=== PATIENT | female | born 1960 | race Caucasian/White ===

== ENCOUNTER 2018-10-02 07:24 | Day surgery (SDC) | payer OTHER ==
[2018-09-29 13:29] VITALS: Ht 154.9 cm; Wt 77.3 kg
[~2018-10-02] VITALS: Ht 154.9 cm; Wt 77.3 kg
[2018-10-02] VITALS (11 sets, daily range): BP systolic 109–140; BP diastolic 64–78; PULSE 76–86; RESP 11–18
[~2018-10-02 07:24] MED LIST: [UNRECOGNIZED DRUG - REMARK]
[2018-10-02] MEDS ORDERED: HYDR25TA6 PO (07:52)
--- NOTE | 2018-10-02 08:04 | NUR ---
RE: X RAY SPOKE WITH DR. MCCLELLAND , CLARIFIED IF NEED TO DO X RAY. ORDERS RECEIVED NOT TO DO.
--- NOTE | 2018-10-02 09:48 | HPN ---
Date/Time of Note Date/Time of Note DATE: 10/02/18 TIME: 09:48 Interval H&P Admission Note Pt. seen H&P reviewed: No system changes PIERCE LISA MD Oct 02, 2018 09:48
--- NOTE | 2018-10-02 09:54 | PREAC ---
Date/Time of Note Date/Time of Note DATE: 10/02/18 TIME: 09:52 Anesthesia Eval and Record Evaluation Time Pre-Procedure Interview DATE: 10/02/18 TIME: 09:52 Age 58 Sex female NPO: 8 hrs Preoperative diagnosis LEFT RING TRIGGER FINGRER Planned procedure TRIGGER FINGER RELEASE Past Medical History Past Medical History: Includes Cardio: HTN Surgery & Anesthesia Issues No known issue Meds Anticoagulation: No Beta Leena within 24 hr: No Reason Beta Leena not given: Pt. not on B-Leena Reported Medications Hydrochlorothiazide* (Hydrochlorothiazide*) 25 Mg Tab, 25 MG PO DAILY, #30 TAB 10/02/18 Discontinued Reported Medications [Take Med For Htn] No Conflict Check 09/29/18 Meds reviewed: Yes Allergies Coded Allergies: No Known Allergy (Unverified , 10/02/18) Allergies Reviewed: Yes Labs/Studies Labs Reviewed: Reviewed by anesthesiologist Result Diagram: 10/02/18 0815 Laboratory Tests 10/02/18 08:15 test: N/A Studies: ECG (SR), CXR (N/A) Pre-procedure Exam Last vitals Vital Signs Date Temp Pulse Resp B/P (MAP) Pulse Ox O2 O2 Flow FiO2 Time Delivery Rate 10/02/18 97.9 76 18 140/75 95 Room Air 07:52 (96) Airway: Adequate mouth opening Mallampati: Mallampati I Teeth: Normal Lung: Normal Heart: Normal ASA Physical Status ASA physical status: 2 Emergency: None Planned Anesthetic General/MAC: LMA, TIVA Planned Pain Management Parenteral pain med Pre-operative Attestations Prior to commencing anesthesia and surgery, the patient was re-evaluated, there was verification of: *The patient's identity *The results of appropriate recent lab work and preoperative vital signs *The above evaluation not changing prior to induction *Anesthetic plan, risk benefits, alternative and complications discussed with patient/family; questions answered; patient/family understands, accepts and wishes to proceed. CHANCE KENDALL MD Oct 02, 2018 09:54
[2018-10-02] MEDS ORDERED: PROPOFOL 20 ML ONE (09:57)
[2018-10-02] MEDS ORDERED: MIDAZOLAM 1 MG/ML 2 ML INJ ONE (09:57)
[2018-10-02] MEDS ORDERED: FENTAnyl 50 MCG/ML VIAL ONE (09:58)
[2018-10-02] MEDS ORDERED: KETOROLAC 30 MG INJ ONE (09:59)
[2018-10-02] MEDS ORDERED: ONDANSETRON 4 MG INJ IV PRN (10:00)
[2018-10-02] MEDS ORDERED: MEPERIDINE 25 MG INJ IV PRN (10:00)
[2018-10-02] MEDS ORDERED: LABETALOL HCL 20MG INJ IV PRN (10:00)
[2018-10-02] MEDS ORDERED: hydrALAzine 20 MG INJ IV PRN (10:00)
[2018-10-02] MEDS ORDERED: OXYCODONE/ACETAMINOPHEN (5/325) TAB PO PRN ×2 (10:00)
[2018-10-02] MEDS ORDERED: DIPHENHYDRAMINE 50 MG INJ IV PRN (10:00)
[2018-10-02] MEDS ORDERED: HYDROmorphONE 1 MG/5 ML IV SYRINGE IV PRN ×3 (10:00)
[2018-10-02] MEDS ORDERED: LIDOCAINE 1%/EPI (1:100,000) (MDV) 20 ML ONE (10:03)
--- NOTE | 2018-10-02 10:24 | SIPON ---
Date/Time of Note Date/Time of Note DATE: 10/02/18 TIME: 10:22 Operative Report Preoperative Diagnosis left ring finger trigger finger, constrictive tenosynotis Postoperative Diagnosis same plus small ganlion cyst of tenosheath Operation/Procedure Performed excise cyst release trigger finger Surgeon cordelia Lieberman assist staff Anesthesia: moderate sedation Estimated blood loss: none Transfusion Required none Specimen cyst Grafts/Implants none Complications none PIERCE LISA MD Oct 02, 2018 10:24
--- NOTE | 2018-10-02 11:02 | NUR ---
PACU NOTES: PATIENT AWAKE AND ALERT. ON ROOM AIR 95% S/P LEFT RELEASE RING TRIGGER FINGER. COMPLAIN OF PAIN MEDICATED WITH DILAUDID 0.4 MG IV AND ZOFRAN 4 MG IV GIVEN. TOLERATED P.O FLUIDS. LEFT HAND ELEVATED IN PILLOW W/ DRY AND INTACT DRESSING ABLE TO MOVE FINERS AND WARM TO TOUCH. DAUGHTER NOTIFIED OF TRANSFER TO [facility]. Addendum: 10/02/18 at 1130 by MONICA PALACIO RN CALLED DAUGHTER BRIGIDO TO COME TO PACU, SPOKE WITH MATEO TO BRING IN PATIENT IN PACU BUT DAUGHTER WAS NOT ABLE TO LOCATE. TOLERATED P.O FLUIDS. PAIN CONTROLLED
--- NOTE | 2018-10-02 11:13 | PAC ---
Date/Time of Note Date/Time of Note DATE: 10/02/18 TIME: 11:12 Post-Anesthesia Notes Post-Anesthesia Note Last documented vital signs 97.8Vital Signs Date Temp Pulse Resp B/P (MAP) Pulse Ox O2 O2 Flow FiO2 Time Delivery Rate 10/02/18 97.8 80 15 116/64 94 Room Air 10:55 (81) 10/02/18 97.8 10:35 Activity: WNL Respiratory function: WNL Cardiovascular function: WNL Mental status: Baseline Pain reasonably controlled: Yes Hydration appropriate: Yes Nausea/Vomiting absent: No CHANCE KENDALL MD Oct 02, 2018 11:13
--- NOTE | 2018-10-02 12:15 | NUR ---
SDS: PATIENT D/C HOME IN STABLE CONDITION, VS WITHIN NORMAL LIMITS, NO PAIN OR DISCOMFORT REPORTED. ALL D/C INSTRUCTIONS PROVIDED TO PATIENT AND FAMILY, THEY VERBALIZED UNDERSTANDING AND READINESS TO HOME. NO BLEEDING AT INCISION SITE.
--- NOTE | 2018-10-02 12:46 | OPR ---
DATE OF OPERATION: 10/02/2018 PREOPERATIVE DIAGNOSIS: Left hand ring finger, trigger finger stenosing tenosynovitis. POSTOPERATIVE DIAGNOSIS: Left hand ring finger, trigger finger stenosing tenosynovitis, plus small ganglion cyst of the flexor tendon sheath. SURGEON: Pierce Spain MD WAGE ADJUSTER: business systems administrator: ____ ANESTHESIA TECHNIQUE: Sedation by the anesthesiologist, local anesthetic by this surgeon. SURGICAL PAUSE: I examined the patient in the preop holding area. The patient and daughter identified the surgical site. With a marking pen, I carlee in the planned surgical incision. I showed the planned surgical incision to the patient. We again confirmed the operative procedure and plan. Daughter worked and functioned as an translator interpreter. The patient's primary language is Occitan. INFORMED CONSENT: At the time, we scheduled the operative procedure in the office with an translator interpreter. We talked about the risks and hazards of surgery and mentioning the operative mortality, wound infection, nerve injury, good result, bad result, potential complications. The patient signed a note in Indian confirming the informed consent conversation. We went through the informed consent process. How much we truly understand is impossible for me to document. DESCRIPTION OF PROCEDURE: The patient was taken to surgery, anesthetized as above, sterile prep and drape. The patient was sedated and local anesthetic applied.hand elevation and pneumatic tourniquet inflated. A transverse incision made in the palm overlying the flexor tendon sheath and the A1 samuel of left hand ring finger. We observed the small ganglion cyst of the flexor tendon sheath. We incised the A1 samuel and took a small piece sheath with ganglion cyst attached. We sent this to the lab for pathologic identification. We incised the A1 samuel, taking care to protect the A2 samuel and the neurovascular bundles were protected throughout. The wound was closed with interrupted Vicryl Rapide suture and a bulky dressing applied. DISCHARGE MEDICATIONS: 1. Ibuprofen 600 mg. 2. Keflex 250 mg. FOLLOWUP: Will be in our office in a week. A modest dressing was applied. Dictated By: PIERCE MESA/CHEMO Conf#: [id number] DID#: [id number]
== END 2018-10-02 12:15 | disposition home or self-care (01) ==
LOC: SDS 07:24
PROVIDERS: ATTEND Orthopaedic Surgery Hand Surgery
DX: M65.342 Trigger finger, left ring finger (principal); I10 Essential (primary) hypertension; M67.442 Ganglion, left hand
CPT/HCPCS: 26160; 81001; 85025; 88304; 93005; J1170; J1885; J2250; J2405; J3010; Z7610